=== PATIENT | female | born 1990 | race Caucasian/White ===

== ENCOUNTER 2016-10-12 20:11 | Emergency (ER) | payer BC ==
[2016-10-12] MEDS ORDERED: MORPHINE SULFATE 4 MG/1 ML IVP ONE (20:34)
[2016-10-12] MEDS ORDERED: ONDANSETRON 4 MG/2 ML VIAL IVP ONE (20:34)
[2016-10-12] MEDS ORDERED: Sodium Chloride 0.9% 1,000 ML PRIMARY IV ONE (20:34)
[2016-10-12] MEDS ORDERED: ONDANSETRON 4 MG/2 ML VIAL ONE (20:37)
[2016-10-12] MEDS ORDERED: MORPHINE SULFATE 4 MG/1 ML ONE (20:38)
--- NOTE | 2016-10-12 20:39 | PDOC ---
GI Bleed/Rectal Complaint HPI - General Chief Complaint: GI Bleed / Rectal Pain Stated Complaint: Rectal bleed Date Seen by Provider: 10/12/16 Time Seen by Provider: 20:35 Source: POSITIVE: Patient, Spouse Exam Limitations: POSITIVE: No limitations Nurse's Notes Reviewed & Considered: Yes - History of Present Illness Initial Comments: Patient comes in today with a chief complaint of rectal bleeding. The patient had a bowel movement early this morning and small amount of blood streaking in her stool and streaking or toilet paper. Her second bowel movement of the day had more blood. This evening showed a third bowel movement with significant amount of increased bleeding that was dark red, no pain but sensation of pressure in her rectum. She denies having any fevers, chills, sweats. She denies nausea vomiting no diarrhea. She denies any hematuria or dysuria. No headaches, cough, chest pain, or shortness of breath. Body Location Affected: REPORTS: Other (Rectum) Timing: REPORTS: Abrupt, Upon Awakening Duration: <24 hours Severity: Moderate Quality: REPORTS: Pressure Context: REPORTS: None Associated Symptoms: REPORTS: Maroon Stools, Black Stools, Blood Streaks on Stool Similar Symptoms Previously: No Recent Care Received: REPORTS: Denies Any Prior Injuries Related to Current Complaint?: No - Patient Home Medications Home Medications: Home Medications NK [No Home Medications Reported] 10/12/16 - Patient Allergies Allergies/Adverse Reactions: Allergies Allergy/AdvReac Type Severity Reaction Status Date / Time No Known Drug Allergies Allergy NOT Verified 10/12/16 20:21 APPLICABLE Past Medical History - heen HEENT History: Denies History Cardiovascular History: Denies History Respiratory History: Denies History Gastrointestinal History: Denies History Genitourinary History: Denies History Endocrine History: Denies History Musculoskeletal History: Back Pain Neurological History: Denies History Blood Disorders: Denies History Psychiatric History: Denies History History of Sexually Transmitted Diseases: No Cancer History: Denies History History of MDRO: No History of Other Communicable Diseases: No Alcohol Use: Occasionally Substance Use Type: None, Marijuana Previous Surgical History: Yes Type / Date of Surgery: CSECTION NOVEMBER 2013. CHOLECYSTECTOMY Significant Family History: No pertinent family hx ROS - Limitations ROS Limitations: No Limitations Constitution: REPORTS: Denies Symptoms Cardiovascular: REPORTS: Denies Cardiac Symptoms Respiratory: REPORTS: Denies Resp Symptoms Neurological: REPORTS: Denies Neuro Symptoms Gastrointestinal: REPORTS: Bloody Stools, Other (Rectal pressure) Endocrine: REPORTS: Denies Symptoms Musculoskeletal: REPORTS: Denies MS Symptoms Genitourinary: REPORTS: Denies Symptoms Eyes: REPORTS: Denies Symptoms ENT: REPORTS: Denies Symptoms Skin: REPORTS: Denies Skin Symptoms Lympathic: REPORTS: Denies Lympathic Symptoms Immunologic: POSITIVE: Denies Symptoms Psychiatric: POSITIVE: Denies Psych Symptoms GI Bleed / Rectal Complaint PE - General Appearance General Appearance: POSITIVE: Alert, Cooperative, No Acute Distress, No Evidence of Trauma - HEENT HEENT: POSITIVE: Head Inspection Nml, Eyes Inspection Nml, Ears Inspection Nml, Nose Inspection Nml, PERRL, EOMI - Neck Neck: POSITIVE: Normal Inspection, No Apparent Injury - Respiratory Respiratory: POSITIVE: No Respiratory Distress, Breath Sounds Normal, Chest Non- Tender - Cardiovascular Cardiovascular: POSITIVE: Regular Rate and Rhythm, Heart Sounds Normal - Abdomen Abdomen: Soft: (All Quadrants), Normal Bowel Sounds: (All Quadrants), Denies Tenderness: (All Quadrants) - Genital / Rectal Pelvic: POSITIVE: External Exam Normal Rectal: POSITIVE: Blood-Streaked Stool, Heme Positive Stool - Skin Skin: POSITIVE: Color Normal, No Rash, Warm, Dry - Extremities Extremity: Non-Tender: (All Extremities), Normal ROM: (All Extremities), Normal Inspection: (All Extremities) - Neurological / Psychological Neurological: POSITIVE: Affect Apporpriate, Oriented X3 GI Bleed / Rectal Progress - Results Reviewed by me Xrays/CTs/US Reviewed by me: Yes Discussed with Radiologist: Yes Lab Results Reviewed: Yes Lab Results:: Laboratory Results 10/12/16 Range/Units 20:40 WBC 13.59 H (4.8-10.8) 10^3/uL RBC 4.92 (4.20-5.40) 10^6/uL Hgb 14.3 (12.0-16.0) g/dL Hct 42.3 (37.0-47.0) % MCV 86.0 (81-99) FL MCH 29.1 (27-31) PG MCHC 33.8 (33-37) g/dL RDW Std Deviation 44.8 (39-50) fL RDW Coeff of Dilcia 14.5 (11.5-14.5) % Plt Count 353 H (140-350) 10*3/uL MPV 9.8 (7.4-12.2) FL Immature Gran % (Auto) 0.3 (0-5) % Neut % (Auto) 60.7 (50-80) % Lymph % (Auto) 31.0 (10-50) % [place] % (Auto) 4.4 L (5-15) % Eos % (Auto) 3.2 (0-8) % Baso % (Auto) 0.4 (0-1) % Immature Gran # (Auto) 0.04 10*3/UL Neut # (Auto) 8.24 10*3/UL Lymph # (Auto) 4.21 10*3/uL [place] # (Auto) 0.60 (0.3-0.8) 10*3/UL Eos # (Auto) 0.44 10*3/UL Baso # (Auto) 0.06 10*3/UL WBC Morphology Comment Normal morphology (NORM) Plt Morphology Comment Normal morphology (NORM) RBC Morph Comment Normal morphology (NORM) PT 10.4 (9.7-11.4) secs INR 1.01 (0.00-5.90) N/A Sodium 137 (135-145) meq/L Potassium 4.3 (3.8-5.2) meq/L Chloride 100 (98-112) meq/L Carbon Dioxide 26 (23-33) meq/L Anion Gap 11 (5-20) BUN 13 (7-22) mg/dL Creatinine 0.7 (0.50-1.20) mg/dL Estimated GFR > 60 (>60 ml/min/1.73m(2)) BUN/Creatinine Ratio 18.57 (6-20) Glucose 93 (78-110) mg/dL Calculated Osmolality 283.0 (267-292) mOsm/kg Calcium 9.4 (8.7-10.7) mg/dL Magnesium 1.9 (1.6-2.4) mg/dL Total Bilirubin 0.4 (0.3-1.2) mg/dL AST 18 (8-39) IU/L ALT 25 (9-52) IU/L Alkaline Phosphatase 70 (38-126) IU/L Total Protein 7.8 (6.1-8.0) g/dL Albumin 4.4 (3.5-4.8) g/dL Globulin 3.4 (2.50-4.10) g/dL Albumin/Globulin Ratio 1.20 L (1.3-2.0) mg/g - Patient's Progress Pain Medication Addressed: POSITIVE: Yes Re-Examine Time:: 22:16 Status: POSITIVE: Improved MDM / ED Course: Patient was examined, an IV started, blood drawn and sent to the lab for studies , CT scan of her abdomen was obtained. She received morphine, Zofran, and normal saline. Her pain improved. Notes of bleeding here in the emergency room. Findings: Hemodynamically she has been stable with normal blood pressures, normal H&H, and no symptomatic dizziness. She does have an elevated white count to greater than 13. CT scan of her abdomen shows no acute intra- abdominal or intrapelvic abnormalities. Guaiac of her stool is positive for heme. Assessment: GI bleeding from lower GI tract. In addition I am concerned about the possibility of colitis because of her elevated white count and feelings of pressure in her abdomen. Plan: Discharge home on Flagyl and ciprofloxacin. Follow up with gastroenterology. Return to the emergency room if increased bleeding fevers diarrhea or other concerns. - Consult Counseled: POSITIVE: Patient, Family, RE: Lab Results, RE: Radiology Results, RE : DX, RE: Need for F/U Patient Care Time - Estimated PCT Patient Care Time (In Minutes): 30 Vital Signs - Recent Vital Signs Vital Signs: Vital Signs (Last 8 hours) Temp Pulse Resp BP Pulse Ox 10/12/16 20:11 97.5 F 90 18 139/94 94 - VS Reviewed Vital Signs Reviewed: Yes Discharge Clinical Impression: Lower GI bleed Discharge Disposition: Discharged to Home Condition: Stable Patient Instructions Given at Discharge: Gastrointestinal Bleeding (ED)
[2016-10-12 20:44] LABS: BASOPHILS # (AUTO) 0.06 10*3/UL; BASOPHILS % (AUTO) 0.4 % (0-1); EOSINOPHILS # (AUTO) 0.44 10*3/UL; EOSINOPHILS % (AUTO) 3.2 % (0-8); HEMATOCRIT 42.3 % (37.0-47.0); HEMOGLOBIN 14.3 g/dL (12.0-16.0); LYMPHOCYTES # (AUTO) 4.21 10*3/uL; MEAN CORPUSCULAR HEMOGLOBIN 29.1 PG (27-31); MEAN CORPUSCULAR HGB CONC 33.8 g/dL (33-37); MEAN PLATELET VOLUME 9.8 FL (7.4-12.2); MONOCYTES % (AUTO) 4.4 % (5-15); NEUTROPHILS # (AUTO) 8.24 10*3/UL; NEUTROPHILS % (AUTO) 60.7 % (50-80); PLATELET MORPHOLOGY COMMENT NORMAL MORPHOLOGY (NORM); RBC MORPHOLOGY COMMENT NORMAL MORPHOLOGY (NORM); RED BLOOD COUNT 4.92 10^6/uL (4.20-5.40); WBC MORPHOLOGY COMMENT NORMAL MORPHOLOGY (NORM)
[2016-10-12 20:53] LABS: BLOOD UREA NITROGEN 13 mg/dL (7-22); BUN/CREATININE RATIO 18.57 (6-20); CALCIUM 9.4 mg/dL (8.7-10.7); EST GLOMERULAR FILTRATION > 60 (>60 ml/min/1.73m(2)); MAGNESIUM 1.9 mg/dL (1.6-2.4); SERUM ALBUMIN 4.4 g/dL (3.5-4.8)
[2016-10-12 21:31] VITALS: RESP 18; TEMP 97.5
--- NOTE | 2016-10-12 22:01 | DI ---
HISTORY: Rectal bleeding. COMPARISON: None available. TECHNIQUE: Multiple helically acquired CT images were obtained through the abdomen and pelvis follow ing the intravenous administration of contrast. FINDINGS: The lung bases are clear. The liver, spleen, adrenals, kidneys and pancreas are unremarkable. The patient is status post tess cystectomy. The appendix is normal. There is normal urinary bladder. The uterus and ovaries are unremarkable. There are few shotty mesenteric and retroperitoneal lymph nodes. There is loss of intervertebral disc height at the L5/S1 level with some mild facet arthropathy. IMPRESSION: 1. No acute intra-abdominal pathology.
[2016-10-12] MEDS ORDERED: CIPROFLOXACIN 500 MG TABLET PO ONE (22:09)
[2016-10-12] MEDS ORDERED: metroNIDAZOLE Tab 500 MG TAB PO ONE (22:09)
[2016-10-13] MEDS ORDERED: Sodium Chloride 0.9% 1,000 ML ONE (03:41)
== END 2016-10-12 22:30 | disposition home or self-care (01) ==
LOC: ER 20:11
DX: K92.2 Gastrointestinal hemorrhage, unspecified (principal)
CPT/HCPCS: 74177; 80053; 83735; 85025; 85610; 96361; 96374; 96375; 99283; J2270; J2405; J7030